=== PATIENT | female | born 1995 | race Caucasian/White ===

== ENCOUNTER 2017-12-14 15:46 | Outpatient (CLI) | payer OTHER, BC | END 2017-12-14 15:47 | disposition EMS.NT | LOC: EMS 15:46 | PROVIDERS: ATTEND Surgery | DX: M25.511 Pain in right shoulder (principal); V43.62XA Car passenger injured in collision with other type car in traffic accident, initial encounter; Y92.413 State road as the place of occurrence of the external cause ==

== ENCOUNTER 2017-12-14 18:01 | Emergency (ER) | payer OTHER, BC ==
[2017-12-14] MEDS ORDERED: IBUPROFEN 600 MG TABLET PO STA (18:31)
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
[2017-12-14 19:43] VITALS: BP 124/66
== END 2017-12-14 19:44 | disposition home or self-care (01) ==
LOC: ED 18:01
DX: S20.211A Contusion of right front wall of thorax, initial encounter (principal); S40.021A Contusion of right upper arm, initial encounter; V43.62XA Car passenger injured in collision with other type car in traffic accident, initial encounter; Y92.488 Other paved roadways as the place of occurrence of the external cause
CPT/HCPCS: 71101; 99283; A9270